=== PATIENT | male | born 1945 | race Two or more races ===

== ENCOUNTER 2021-05-15 03:14 | Emergency (ER) | payer OTHER ==
[~2021-05-15] VITALS: Ht 172.7 cm; Wt 70.8 kg
[2021-05-15] MEDS ORDERED: LOPRESSOR HCT1 EACH (03:32)
[2021-05-15] MEDS ORDERED: HYZAAR 100-12.1 EACH (03:32)
[2021-05-15] MEDS ORDERED: TOPROL XL100 MG PO (05:55)
== END 2021-05-15 06:07 ==
LOC: ER 03:14
DX: I49.3 Ventricular premature depolarization (principal); R00.2 Palpitations